=== PATIENT | female | born 1955 | race Caucasian/White ===

== ENCOUNTER 2020-04-15 16:57 | Emergency (ER) | payer BC ==
[~2020-04-15] VITALS: Ht 157.5 cm; Wt 69.4 kg
--- OUTSIDE RECORDS SUMMARY | ~2020-04-15 | XMS | Encounter Summary ---
Demographics + + + | Address | [address] | | | [place] [address] | + + + | Home Phone | | + + + | Preferred Language | Unknown | + + + | Marital Status | Single | + + + | Druze Affiliation | 1077 | + + + | Race | Unknown | + + + | Ethnic Group | Unknown | + + + Author + + + | Author | [facility] | | | and [place] | + + + | Organization | [facility] | | | and [place] | + + + | Address | Unknown | + + + | Phone | Unavailable | + + + Support + + +---------+ + | Name | Relationship | Address | Phone | + + +---------+ + | Shubham Wolfe | ECON | Unknown | | + + +---------+ + | Haven Wolfe | ECON | Unknown | | + + +---------+ + | Lesli Wolfe | ECON | Unknown | | + + +---------+ + Care Team Providers + +------+ + | Care Counting Machine Operator Name | Role | Phone | + +------+ + | Roger Gibbs DO | PCP | | + +------+ + Reason for Referral Diagnostic/Screening (Routine) +--------+--------+ + + + + | Status | Reason | Specialty | Diagnoses / | Referred By | Referred To | | | | | Procedures | Contact | Contact | +--------+--------+ + + + + | Closed | | Radiology | Diagnoses | Josr, | [facility] | | | | | Sciatica of | Kyree | [address] | | | | | right side | [place] | [place], | | | | | associated | [address] | [place] | | | | | with | [place] | [address] | | | | | disorder of | [place], | Phone: | | | | | lumbosacral | [place] [address] | [phone] | | | | | spine Ankle | Phone: | Fax: | | | | | weakness | [phone] | [phone] | | | | | Procedures | Fax: | | | | | | MRI Lumbar | [phone] | | | | | | Spine wo | | | | | | | Contrast | | | +--------+--------+ + + + + Reason for Visit Diagnostic/Screening (Routine) +--------+--------+ + + + + | Status | Reason | Specialty | Diagnoses / | Referred By | Referred To | | | | | Procedures | Contact | Contact | +--------+--------+ + + + + | Closed | | Radiology | Diagnoses | Josr, | [facility] | | | | | Sciatica of | Kyree | [address] | | | | | right side | [place] | [place], | | | | | associated | [address] | [place] | | | | | with | [place] | [address] | | | | | disorder of | [place], | Phone: | | | | | lumbosacral | [place] [address] | [phone] | | | | | spine Ankle | Phone: | Fax: | | | | | weakness | [phone] | [phone] | | | | | Procedures | Fax: | | | | | | MRI Lumbar | [phone] | | | | | | Spine wo | | | | | | | Contrast | | | +--------+--------+ + + + + Encounter Details +--------+ + + + + | Date | Type | Department | Care Team | Description | +--------+ + + + + | [facility]22/ | [facility] Josr Kyree | Sciatica of right | | 2015 | Encounter | [facility] MRI [address] | [address] | side associated with | | | | [place], | [address] [place] | disorder of | | | | [place] [address] | [place] [address] | lumbosacral spine; | | | | [phone] | [phone] | Ankle weakness | | | | | | | +--------+ + + + + Social History + +-------+ +--------+------+ | Tobacco Use | Types | Packs/Day | Years | Date | | | | | Used | | + +-------+ +--------+------+ | Never Smoker | | | | | + +-------+ +--------+------+ + +---+---+---+ | Smokeless Tobacco: | | | | | Never Used | | | | + +---+---+---+ + + +---------+ + | Alcohol Use | Drinks/Week | oz/Week | Comments | + + +---------+ + | Yes | 0 Standard drinks | 0.0 | Rare | | | or equivalent | | | + + +---------+ + + + + | Sex Assigned at | Date Recorded | | | | + + + | Not on file | | + + + + + + + | Job Start Date | Occupation | Industry | + + + + | Not on file | Not on file | Not on file | + + + + + + + + | Travel History | Travel Start | Travel End | + + + + + + | No recent travel history available. | + + documented as of this encounter Medications at Time of Discharge + + + +---------+--------+ + | Medication | Sig | Dispensed | Refills | Start | End Date | | | | | | Date | | + + + +---------+--------+ + | cycloSPORINE | Place 1 drop into | | 0 | | | | (RESTASIS) 0.05% | both eyes 2 times | | | | | | ophthalmic emulsion | daily. | | | | | + + + +---------+--------+ + | montelukast | Take 10 mg by mouth | | 0 | | | | (SINGULAIR) 10 mg | nightly. | | | | | | tablet | | | | | | + + + +---------+--------+ + | pirbuterol (MAXAIR | Inhale 2 puffs into | | 0 | | | | AUTOHALER) 200 | the lungs 4 times | | | | | | mcg/puff inhaler | daily. | | | | | + + + +---------+--------+ + documented as of this encounter Plan of Treatment Not on filedocumented as of this encounter Procedures + +--------+ + + + | Procedure Name | Priori | Date/Time | Associated Diagnosis | Comments | | | ty | | | | + +--------+ + + + | MRI LUMBAR SPINE WO | Routin | 08/22/2015 | Sciatica of right | Results for this | | CONTRAST | e | 12:15 PM | side associated with | procedure are in the | | | | PDT | disorder of | results section. | | | | | lumbosacral spine | | | | | | Ankle weakness | | + +--------+ + + + documented in this encounter Results MRI Lumbar Spine wo Contrast (08/22/2015 12:15 PM PDT) + + | Specimen | + + | | + + + + + | Narrative | Performed At | + + + | MRI LUMBAR SPINE WO CONTRAST. 08/22/2015 11:48 AM HISTORY: | [facility] | | right leg sciatica, right ankle weakness. COMPARISON: Lumbar | [facility] [address] | | spine x-ray 03/10/2015 TECHNIQUE: Axial T1, T2; sagittal T1, T2, | [facility] | | and STIR; coronal T2 MRI images of the lumbar spine were obtained | - IMAGING | | without IV contrast. FINDINGS: There is mild levoconvex curvature | | | of the lumbar spine centered at L2-3. Vertebral body alignment is | | | otherwise maintained. Superior central endplate mild compressive | | | change is seen at the levels of L1 and L2, with Schmorl's node change | | | is seen at the superior endplate of T12 and L3. Discogenic endplate | | | bone marrow signal change is present at the level of L2-3. There is | | | significant loss of disc height. There is mild decreased disc | | | hydration signal at the level of L2-3, greater than at the other | | | levels. The conus medullaris terminates normally at the level of L1. | | | On axial imaging: T11-12: Small posterior disc bulge that | | | extends approximately 3.5 mm into the spinal canal, without | | | significant narrowing of the thecal sac. Mild facet degenerative | | | change with some ligamentum flavum thickening. No neural foraminal | | | narrowing. T12-L1: Small posterior disc bulge that minimally | | | contours the thecal sac. Facet degenerative change with very mild | | | ligamentum flavum thickening. No neural foraminal narrowing. | | | L1-2: Minimal posterior disc bulge. Facet degenerative change, | | | with small bilateral facet joint effusions. No significant | | | narrowing of the thecal sac or neural foramina. L2-3: Small | | | posterior disc bulge that projects approximately 3 mm into the spinal | | | canal, without significant narrowing of the thecal sac. Mild facet | | | degenerative change with small left and trace right facet joint | | | effusion. No neural foraminal narrowing. L3-4: Thecal sac and | | | neural foramina within normal limits. Small bilateral facet joint | | | effusions. L4-5: Thecal sac and neural foramina within normal | | | limits. L5-S1: Thecal sac and neural foramina within normal | | | limits. The visualized intra-abdominal and paraspinal structures | | | are normal. IMPRESSION - Multilevel degenerative disc disease | | | and spondylotic change, localized to the lower thoracic and upper | | | lumbar spine, without significant spinal canal or neural foraminal | | | narrowing. Mild levoconvex curvature of the lumbar spine. | | | Dictated and Signed by: John Luna MD Electronically signed: | | | 08/22/2015 3:11 PM | | + + + + + | Procedure Note | + + | [place], Rad Results In - 08/22/2015 3:14 PM PDT MRI LUMBAR SPINE WO CONTRAST. | | 08/22/2015 11:48 AMHISTORY: right leg sciatica, right ankle weakness.COMPARISON: Lumbar | | spine x-ray 03/10/2015TECHNIQUE: Axial T1, T2; sagittal T1, T2, and STIR; coronal T2 MRI | | images of thelumbar spine were obtained without IV contrast.FINDINGS:There is mild | | levoconvex curvature of the lumbar spine centered at L2-3. Vertebral body alignment is | | otherwise maintained.Superior central endplate mild compressive change is seen at the | | levels of L1and L2, with Schmorl's node change is seen at the superior endplate of T12 | | andL3.Discogenic endplate bone marrow signal change is present at the level of | | L2-3.There is significant loss of disc height. There is mild decreased dischydration | | signal at the level of L2-3, greater than at the other levels.The conus medullaris | | terminates normally at the level of L1.On axial imaging:T11-12: Small posterior disc | | bulge that extends approximately 3.5 mm into thespinal canal, without significant | | narrowing of the thecal sac. Mild facetdegenerative change with some ligamentum flavum | | thickening. No neural foraminalnarrowing.T12-L1: Small posterior disc bulge that | | minimally contours the thecal sac. Facet degenerative change with very mild ligamentum | | flavum thickening. Noneural foraminal narrowing.L1-2: Minimal posterior disc bulge. | | Facet degenerative change, with smallbilateral facet joint effusions. No significant | | narrowing of the thecal sac orneural foramina.L2-3: Small posterior disc bulge that | | projects approximately 3 mm into thespinal canal, without significant narrowing of the | | thecal sac. Mild facetdegenerative change with small left and trace right facet joint | | effusion. Noneural foraminal narrowing.L3-4: Thecal sac and neural foramina within | | normal limits. Small bilateralfacet joint effusions.L4-5: Thecal sac and neural | | foramina within normal limits.L5-S1: Thecal sac and neural foramina within normal | | limits.The visualized intra-abdominal and paraspinal structures are normal.IMPRESSION | | -Multilevel degenerative disc disease and spondylotic change, localized to thelower | | thoracic and upper lumbar spine, without significant spinal canal orneural foraminal | | narrowing.Mild levoconvex curvature of the lumbar spine.Dictated and Signed by: John | | MD Jeremy Electronically signed: 08/22/2015 3:11 PM | |Facet degenerative change with very mild ligamentum flavum thickening. No | |neural foraminal narrowing. | | | |L1-2: Minimal posterior disc bulge. Facet degenerative change, with small | |bilateral facet joint effusions. No significant narrowing of the thecal sac or | |neural foramina. | | | |L2-3: Small posterior disc bulge that projects approximately 3 mm into the | |spinal canal, without significant narrowing of the thecal sac. Mild facet | |degenerative change with small left and trace right facet joint effusion. No | |neural foraminal narrowing. | | | |L3-4: Thecal sac and neural foramina within normal limits. Small bilateral | |facet joint effusions. | | | |L4-5: Thecal sac and neural foramina within normal limits. | | | |L5-S1: Thecal sac and neural foramina within normal limits. | | | |The visualized intra-abdominal and paraspinal structures are normal. | | | | | |IMPRESSION - | |Multilevel degenerative disc disease and spondylotic change, localized to the | |lower thoracic and upper lumbar spine, without significant spinal canal or | |neural foraminal narrowing. | |Mild levoconvex curvature of the lumbar spine. | | | |Dictated and Signed by: John Luna MD | | Electronically signed: 08/22/2015 3:11 PM | + + + + + + + | Performing | Address | City/State[facility] | Phone Number | | Organization | | | | + + + + + | [address] | [address] | [place] | [phone] | | [facility] | | [id number] | | | - IMAGING | | | | + + + + + documented in this encounter Visit Diagnoses + + | Diagnosis | + + | Sciatica of right side associated with disorder of lumbosacral spine | + + | Ankle weakness Other symptoms referable to ankle and foot joint | + + documented in this encounter"
--- OUTSIDE RECORDS SUMMARY | ~2020-04-15 | XMS | Encounter Summary ---
Demographics + + + | Address | [address] | | | [place] [address] | + + + | Home Phone | | + + + | Preferred Language | Unknown | + + + | Marital Status | Single | + + + | Lutheran Affiliation | 1077 | + + + | Race | Unknown | + + + | Ethnic Group | Unknown | + + + Author + + + | Author | [facility] | | | and [place] | + + + | Organization | [facility] | | | and [...] Team Providers + +------+ + | Care Alarm Mechanic Name | Role | Phone | + +------+ + | Roger Gibbs DO | PCP | | + +------+ + Reason for Visit + + + | Reason | Comments | + + + | Follow-up | F/U lumbar | + + + Encounter Details +--------+---------+ + + + | Date | Type | Department | Care Team | Description | +--------+---------+ + + + | 10/18/ | Office | [facility] | Kyree Ovalles | Facet syndrome, | | 2014 | Visit | REHABILITATION | [address] | lumbar (Primary Dx); | | | | MEDICINE [address] | [facility] | Myofascial pain; | | | | [address] [place] | [place] [address] | Unequal leg length | | | | [place] [address] | [phone] | (acquired) | | | | [phone] | | | +--------+---------+ + + + Social History + +-------+ [...] + + documented as of this encounter Last Filed Vital Signs + + + + + | Vital Sign | Reading | Time Taken | Comments | + + + + + | Blood Pressure | 126/80 | 10/18/2015 3:38 PM | | | | | PST | | + + + + + | Pulse | 64 | 10/18/2015 3:38 PM | | | | | PST | | + + + + + | Temperature | - | - | | + + + + + | Respiratory Rate | 16 | 10/18/2015 3:38 PM | | | | | PST | | + + + + + | Oxygen Saturation | - | - | | + + + + + | Inhaled Oxygen | - | - | | | Concentration | | | | + + + + + | Weight | 81.6 kg (180 lb) | 10/18/2015 3:38 PM | | | | | PST | | + + + + + | Height | 157.5 cm (5' 2") | 10/18/2015 3:38 PM | | | | | PST | | + + + + + | Body Mass Index | 32.92 | 10/18/2015 3:38 PM | | | | | PST | | + + + + + documented in this encounter Patient Instructions Patient Instructions Kyree Ovalles MD - 10/18/2015 3:58 PM PST1. Continue the neurontin, but try 2-3 capsules at bedtime on the weekends. 2. Continue PT as you are doing. Make sure and get a good home back exercise program when you are done. 3. Do the back home exercise program at least 3 times a week or your back pain will come b ack. documented in this encounter Progress Notes Kyree Ovalles MD - 10/19/2015 3:22 PM PST15 minutes was spent, [id number], o romulo half in counseling and education regarding the probable cause of her back pain. We also discussed that the Neurontin she was using was definitely helpful especially with o ne tablet the first night, but the second night not as well. I suggested she continue incre asing her dose discussed specifically how to do that without causing morning sedation at wor k She still has problems getting to sleep, once asleep sleeps much better. She also has done several weeks of physical therapy and they're doing core strengthening as I ordered. She reports this definitely has helped and notes that her back had become weak and deconditioned with decreased activity recently and this is helping Low back pain has resolved except for one episode of one day. Still has some left greater than right SI joint discomfort. She notes some left Achilles tendon/ankle pain 15 days ago but resolved after one day . No numbness or tingling, no leg weakness and in fact her back and legs are stronger. Physical exam She is moderately overweight and appears mildly anxious Left shoe has a lift for her acquired leg length discrepancy and we reviewed the MRI that s howed left scoliosis in the lumbar and right in the mid thoracic area where she also has a l ot of pain also. She has some tenderness along the distal Achilles tendon bursa area and around the ankle by report, but okay with palpation and normal range of motion for her. She has limited invers ion and eversion because of fusion She has tenderness in the left SI area today Lower extremity strength 5 over 5 on the right leg but the left inversion and eversion 4 ou t of 5 but very limited in movement because of fusion. Left tibialis anterior and gastroc 4 + over 5 and good sensation in lower extremities Impression Low back pain with out sciatica. 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 I recommend physical therapy with any flareups and we'll send a note to Dr. Sai zaidi this. Continue Neurontin at bedtime I suggest taking a higher dose over the weekend to get better sleep and if there is any sedation transiently it will not affect her job and then cut back during the week Follow-up as needed If symptoms returned consider left L2-3 mL 3 [address] Roger Gibbs documented in this encounter Plan of Treatment Not on filedocumented as of this encounter Visit Diagnoses + + | Diagnosis | + + | Facet syndrome, lumbar - Primary Other symptoms referable to back | + + | Myofascial pain Mylagia and myositis, unspecified | + + | Unequal leg length (acquired) | + + documented in this encounter
--- OUTSIDE RECORDS SUMMARY | ~2020-04-15 | XMS | Encounter Summary ---
Demographics + + + | Address | [address] | | | [place] [address] | + + + | Home Phone | | + + + | Preferred Language | Unknown | + + + | Marital Status | Single | + + + | Buddhism Affiliation | 1077 | + + + | Race | Unknown | + + + | Ethnic Group | Unknown | + + + Author + + + | Author | [facility] | | | and [place] | + + + | Organization | [facility] | | | and [...] Team Providers + +------+ + | Care Chocolate Molder Name | Role | Phone | + +------+ + | Roger Gibbs DO | PCP | | + +------+ + Reason for Visit +--------+ + | Reason | Comments | +--------+ + | Other | Imaging results | +--------+ + Encounter Details +--------+ + + + + | Date | Type | Department | Care Team | Description | +--------+ + + + + | 09/07/ | Telephone | [facility] | Kyree Ovalles | Other (Imaging | | 2014 | | REHABILITATION | [address] | results) | | | | MEDICINE [address] | [place] | | | | | [address] [place] | [place] [address] | | | | | [place] [address] | [phone] | | | | | [phone] | | | +--------+ + + + [...] + + documented as of this encounter Plan of Treatment Not on filedocumented as of this encounter Visit Diagnoses Not on filedocumented in this encounter"
--- OUTSIDE RECORDS SUMMARY | ~2020-04-15 | XMS | Encounter Summary ---
Demographics + + + | Address | [address] | | | [place] [address] | + + + | Home Phone | | + + + | Preferred Language | Unknown | + + + | Marital Status | Single | + + + | Voodoo Affiliation | 1077 | + + + | Race | Unknown | + + + | Ethnic Group | Unknown | + + + Author + + + | Author | [facility] | | | and [place] | + + + | Organization | [facility] | | | and [...] Team Providers + +------+ + | Care Sister Superior Name | Role | Phone | + +------+ + PCP | Unavailable | + +------+ + Encounter Details +--------+ + + + + | Date | Type | Department | Care Team | Description | +--------+ + + + + | 03/19/ | Hospital | [facility] | | | | 2006 - | Encounter | [address] | | | [address] | | | | 03/31/ | | [place], [place] | | | | 2006 | | [address] | | | | | | [phone] | | | +--------+ + + + + Social History + +-------+ +--------+------+ | Tobacco Use | Types | Packs/Day | Years | Date | | | | | Used | | + +-------+ +--------+------+ | Never Assessed | | | | | + +-------+ +--------+------+ + + + | Sex Assigned at [...]
--- OUTSIDE RECORDS SUMMARY | ~2020-04-15 | XMS | Encounter Summary ---
Demographics + + + | Address | [address] | | | [place] [address] | + + + | Home Phone | | + + + | Preferred Language | Unknown | + + + | Marital Status | Single | + + + | Baptist Affiliation | 1077 | + + + | Race | Unknown | + + + | Ethnic Group | Unknown | + + + Author + + + | Author | [facility] | | | and [place] | + + + | Organization | [facility] | | [...] Team Providers + +------+ + | Care Product Support Engineer Name | Role | Phone | + +------+ + PCP | Unavailable | + +------+ + Encounter Details +--------+ + + + + | Date | Type | Department | Care Team | Description | +--------+ + + + + | 05/31/ | Hospital | [facility] | | BENIGN NEOPLASM SKIN | | 2004 - | Encounter | [address] | | [address] | [address] | [address] | | | | 06/06/ | | [place] | | | | 2004 | | [address] | | | | | | [phone] | | | +--------+ + + + [...] + | Diagnosis | + + | Benign neoplasm of skin, site unspecified | + + documented in this encounter"
--- OUTSIDE RECORDS SUMMARY | ~2020-04-15 | XMS | Encounter Summary ---
Demographics + + + | Address | [address] | | | [place] [address] | + + + | Home Phone | | + + + | Preferred Language | Unknown | + + + | Marital Status | Single | + + + | Methodist Affiliation | 1077 | + + + | Race | Unknown | + + + | Ethnic Group | Unknown | + + + Author + + + | Author | [facility] | | | and [place] | + + + | Organization | [facility] | | | [...] Team Providers + +------+ + | Care Battery Container Finishing Hand Name | Role | Phone | + +------+ + PCP | Unavailable | + +------+ + Encounter Details +--------+ + + + + | Date | Type | Department | Care Team | Description | +--------+ + + + + | 04/10/ | Hospital | [facility] | | BENIGN NEOPLASM SKIN | | 2004 - | Encounter | [address] | | [address] | [address] | [address] | | | | 04/18/ | | [place] | | | | 2004 | | [address] | | | | | | [phone] | | | +--------+ + + + [...]
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
--- OUTSIDE RECORDS SUMMARY | ~2020-04-15 | XMS | Encounter Summary ---
Demographics + + + | Address | [address] | | | [place] [address] | + + + | Home Phone | | + + + | Preferred Language | Unknown | + + + | Marital Status | Single | + + + | Yarsani Affiliation | 1077 | + + + | Race | Unknown | + + + | Ethnic Group | Unknown | + + + Author + + + | Author | [facility] | | | and [place] | + + + | Organization | [facility] | | [...] Team Providers + +------+ + | Care Sweater Operator Name | Role | Phone | + +------+ + PCP | Unavailable | + +------+ + Encounter Details +--------+ + + + + | Date | Type | Department | Care Team | Description | +--------+ + + + + | 04/10/ | Hospital | [facility] | | BENIGN NEOPLASM SKIN | | 2004 - | Encounter | [address] | | [address] | | | | [address] | | | | 04/18/ | | [place] | | | | 2004 | | [address] | | | | | | [phone] | | | +--------+ + + + [...]
--- OUTSIDE RECORDS SUMMARY | ~2020-04-15 | XMS | Clinical Summary ---
Demographics + + + | Address | [address] | | | [place] [address] | + + + | Home Phone | | + + + | Preferred Language | Unknown | + + + | Marital Status | Single | + + + | Presybeterian Affiliation | 1077 | + + + | Race | Unknown | + + + | Ethnic Group | Unknown | + + + Author + + + | Author | [facility] | | | and [place] | + + + | Organization | [facility] | [...] Team Providers + +------+ + | Care Customer Support Manager Name | Role | Phone | + +------+ + | Roger Gibbs DO | PCP | | + +------+ + Allergies + + + + + + | Active Allergy | Reactions | Severity | Noted | Comments | | | | | Date | | + + + + + + | Latex | Itching | | 02/01/20 | Blisters | | | | | 10 | | + + + + + + Medications + + + +---------+------+------+-------+ | Medication | Sig | Dispensed | Refills | Star | End | Statu | | | | | | t | Date | s | | | | | | Date | | | + + + +---------+------+------+-------+ | cycloSPORINE | Place 1 drop into | | 0 | | | Activ | | (RESTASIS) 0.05% | both eyes 2 times | | | | | e | | ophthalmic emulsion | daily. | | | | | | + + + +---------+------+------+-------+ | montelukast | Take 10 mg by mouth | | 0 | | | Activ | | (SINGULAIR) 10 mg | nightly. | | | | | e | | tablet | | | | | | | + + + +---------+------+------+-------+ | pirbuterol (MAXAIR | Inhale 2 puffs into | | 0 | | | Activ | | AUTOHALER) 200 | the lungs 4 times | | | | | e | | mcg/puff inhaler | daily. | | | | | | + + + +---------+------+------+-------+ Active Problems No known active problems Family History + + +------+ + | Medical History | Relation | Name | Comments | + + +------+ + | Alcohol abuse | Brother | | | + + +------+ + | Alcohol abuse | Father | | | + + +------+ + | Asthma | Father | | | + + +------+ + | Cancer | Father | | skin | + + +------+ + | Other (see comment) | Father | | Stomach Problems | + + +------+ + | Other (see comment) | Maternal | | Spinal Stenosis | | | Aunt | | | + + +------+ + | Lung cancer | Maternal | | | | | Grandfath | | | | | er | | | + + +------+ + | Other (see comment) | Maternal | | Malignant neoplastic disease | | | Grandfath | | | | | er | | | + + +------+ + | Diabetes | Maternal | | | | | Grandmoth | | | | | er | | | + + +------+ + | Other (see comment) | Maternal | | Malignant neoplastic disease | | | Grandmoth | | | | | er | | | + + +------+ + | Asthma | Mother | | | + + +------+ + | Diabetes | Mother | | | + + +------+ + | Headache | Mother | | | + + +------+ + | Hypertension | Mother | | | + + +------+ + | Other (see comment) | Mother | | Rheumatic Fever | + + +------+ + | Rheum arthritis | Mother | | | + + +------+ + | Osteoporosis | Other | | Relation Unknown | + + +------+ + | Obesity | Paternal | | | | | Grandmoth | | | | | er | | | + + +------+ + | Other (see comment) | Paternal | | Bowel Problem | | | Grandmoth | | | | | er | | | + + +------+ + | Diabetes | Paternal | | | | | Uncle | | | + + +------+ + | Retinal detachment | Paternal | | | | | Uncle | | | + + +------+ + | Heart failure | Sister | | | + + +------+ + | Rheum arthritis | Sister | | | + + +------+ + | Scoliosis | Sister | | | + + +------+ + + +------+ + + | Relation | Name | Status | Comments | + +------+ + + | Brother | | | | + +------+ + + | Father | | Alive | | + +------+ + + | Maternal Aunt | | Alive | | + +------+ + + | Maternal Aunt | | | | + +------+ + + | Maternal Grandfather | | | Cancer | | | | (Age | | | | | 66) | | + +------+ + + | Maternal Grandmother | | | | | | | (Age | | | | | 105) | | + +------+ + + | Mother | | Alive | | + +------+ + + | Other | | | | + +------+ + + | Paternal Grandmother | | | | + +------+ + + | Paternal Uncle | | Alive | | + +------+ + + | Paternal Uncle | | | | + +------+ + + | Sister | | Alive | | + +------+ + + | Sister | | | | + +------+ + + Social History + +-------+ +--------+------+ [...] recent travel history available. | + + Last Filed Vital Signs + + + [...] | | + + + + + Plan of Treatment + + + + + | Health Maintenance | Due Date | Last Done | Comments | + + + + + | Vaccine: | | | | | Dtap/Tdap/Td (1 - | 8 | | | | Tdap) | | | | + + + + + | Cervical Cancer | | | | | Screening (Pap) | 7 | | | + + + + + | Vaccine: Zoster (1 | | | | | of 2) | 7 | | | + + + + + | Breast Cancer | | | | | Screening | 2 | | | + + + + + | Vaccine: Influenza | | | | | (Season Ended) | 0 | | | + + + + + Results Not on filefrom Last 3 Months Insurance +-------+--------+ +--------+-------+---------+------+ | Payer | Benefi | Subscriber | Effect | Phone | Address | Type | | | t Plan | ID | bharat | | | | | | / | | Dates | | | | | | Group | | | | | | +-------+--------+ +--------+-------+---------+------+ | BCBS | BCBS | [id number] | | | | PPO | | | [place] | | [id number] | | | | | | L FEP | | esent | | | | +-------+--------+ +--------+-------+---------+------+ + +--------+ +--------+ + + | Guarantor Name | Accoun | Relation to | Date | Phone | Billing Address | | | t Type | Patient | of | | | | | | | | | | + +--------+ +--------+ + + | Chary Wolfe | Person | Self [birth year] | [address] | | | al/Fam | | 7 | [phone] | [place] | | | den[place] | | | 8 (Home) | [address] | | | | | | [phone] | | | | | | | 3 (Work) | | + +--------+ +--------+ + + Advance Directives + + + + + | Type | Date Recorded | Patient | Explanation | | | | Principal Technical Writer | | + + + + + | Power of | | | | | Charge Manager | | | | + + + + + | Advance | | | | | Directive | | | | + + + + +
--- OUTSIDE RECORDS SUMMARY | ~2020-04-15 | XMS | Encounter Summary ---
Demographics + + + | Address | [address] | | | [place] [address] | + + + | Home Phone | | + + + | Preferred Language | Unknown | + + + | Marital Status | Single | + + + | Baptist Affiliation | 1077 | + + + | Race | Unknown | + + + | Ethnic Group | Unknown | + + + Author + + + | Author | [facility] | | | and [place] | + + + | Organization | [facility] | | | [...] Team Providers + +------+ + | Care Field Support Engineer Name | Role | Phone [...] + + | 09/07/ | Telephone | [facility] | Kyree Ovalles | Other (Imaging | | 2014 | | REHABILITATION | [address] | results) | | | | MEDICINE [address] | [place] | | | | | [address] [place] | [place] [address] | | | | | [place] [address] | [phone] | | | | | [phone] | | | +--------+ + + + [...]
--- OUTSIDE RECORDS SUMMARY | ~2020-04-15 | XMS | Encounter Summary ---
Demographics + + + | Address | [address] | | | [place] [address] | + + + | Home Phone | | + + + | Preferred Language | Unknown | + + + | Marital Status | Single | + + + | Scientologist Affiliation | 1077 | + + + | Race | Unknown | + + + | Ethnic Group | Unknown | + + + Author + + + | Author | [facility] | | | and [place] | + + + | Organization | [facility] | | | and [...] Team Providers + +------+ + | Care Piano Bench Assembler Name | Role | Phone | + +------+ + | Roger Gibbs DO | PCP | | + +------+ + Reason for Referral Evaluate & Treat (Routine) +--------+ + + + + + | Status | Reason | Specialty | Diagnoses / | Referred By | Referred To | | | | | Procedures | Contact | Contact | +--------+ + + + + + | Closed | Specialty | Physical | Diagnoses | Josr, | | | | Services | Therapy | Janina | Kyree | | | | Required | | syndrome, | [place] | | | | | | lumbar | [address] | | | | | | Lumbar back | [place] | | | | | | sprain, | [place], | | | | | | subsequent | [place] [address] | | | | | | encounter | Phone: | | | | | | | [phone] | | | | | | | Fax: | | | | | | | [phone] | | +--------+ + + + + + Reason for Visit + + + | Reason | Comments | + + + | Follow-up | Back pain | + + + Encounter Details +--------+---------+ + + + | Date | Type | Department | Care Team | Description | +--------+---------+ + + + | 09/05/ | Office | [facility] | Kyree Ovalles | Facet syndrome, | | 2015 | Visit | REHABILITATION | [address] | lumbar (Primary Dx); | | | | MEDICINE [address] | [place] | Lumbar back sprain, | | | | [address] [place] | [place] [address] | subsequent | | | | [place] [address] | [phone] | encounter | | | | [phone] | | | +--------+---------+ + + + [...] + + + | Blood Pressure | 112/73 | 09/05/2015 2:57 PM | | | | | PDT | | + + + + + | Pulse | 78 | 09/05/2015 2:57 PM | | | | | PDT | | + + + + + | Temperature | - | - | | + + + + + | Respiratory Rate | 18 | 09/05/2015 2:57 PM | | | | | PDT | | + + + + + | Oxygen Saturation | - | - | | + + + + + | Inhaled Oxygen | - | - | | | Concentration | | | | + + + + + | Weight | 81.6 kg (180 lb) | 09/05/2015 2:57 PM | | | | | PDT | | + + + + + | Height | 157.5 cm (5' 2") | 09/05/2015 2:57 PM | | | | | PDT | | + + + + + | Body Mass Index | 32.92 | 09/05/2015 2:57 PM | | | | | PDT | | + + + + + documented in this encounter Patient Instructions Patient Instructions Kyree Ovalles MD - 09/05/2015 3:53 PM PDT1. PT in [facility] with [facility] for core strengthening 2. Trial of the neurontin (gabapentin) 3. I'll see you in 6 weeks. 4. If you are not better from PT, we will talk about injections at the left L2-3 and left L3-4. documented in this encounter Progress Notes Kyree Ovalles MD - 09/09/2015 4:52 PM PDTI spent over 25 minutes, face to face with the patient, much more than half in counseling, education, and setting up plan of care as well as trying to sort out the specific etiology of her back pain. The flexion and extension x-ray was okay and this was reviewed with the patient including t he films. She reports back pain that is severe at times but especially points to the left SI area and into the tailbone. She has had no pain into the lower extremities since he last visit. We also spent considerable time reviewing the MRI from August 22, 2015. This showed disco genic end plate marrow changes at L2-3. There were several disc bulges, but no significant nerve root impingement. There didn't appear to be some facet degenerative changes more on t he left consistent with her report. However the worst were at L1-2, but some at L2-3 and L3 -4. Thus I explained we are probably looking at a mechanical back facet pain problem especially given she has not have the right leg pain repeat. However she is very concerned regarding that when she fell she hit in the mid lumbar area a nd felt a distraction at that level. I explained that she could have damaged her facet join ts during that fall and there is some correlation with the MRI and thus discussed facet inje ctions. I also asked the neurosurgeon's to review this MRI and they did and they indicated this was not a surgical problem. Sleep: She is only sleeping 5 6 hours per night and waking up from back pain. Thus we di scussed adding Neurontin that I suspect will help with sleep. Physical exam She is somewhat anxious about her problem. She is somewhat overweight. On palpation she has back pain from L3 through the left SI joint Lower extremity strength 5 over 5 except right eversion still 4 out of 5 and normal sensati on in the lower extremities. The patient explains the right ankle is probably weaker since she uses it more, given her left ankle surgery. However in this case, I would expect it to be stronger and this was reviewed with the patient. Impression Low back pain with no recent sciatica and lumbar MRI more indicative of a facet problem. S he has not yet had physical therapy so we'll start that Bilateral SI pain, left greater than right: Physical therapy to address that also Left leg short, but has a lift: However she does have scoliosis related to that, which coul d worsen a facet problem. Previous history of multiple trauma discussed previously Plan Physical therapy to do core strengthening and home exercise program Neurontin at bedtime to help sleep Follow-up in 6 weeks so she can have a good session of physical therapy If she fails physical therapy will look into a left L2-3, L3-4 facet injectionElectronicall y signed by Kyree Ovalles MD at 09/09/2015 5:05 PM PDTdocumented in this encount er Plan of Treatment + + +--------+ + + | Name | Type | Priori | Associated Diagnoses | Order Schedule | | | | ty | | | + + +--------+ + + | Ambulatory referral | Outpatient | Routin | Facet syndrome, | Ordered: 09/05/2015 | | to Physical Therapy | Referral | e | lumbar Lumbar back | | | | | | sprain, subsequent | | | | | | encounter | | + + +--------+ + + documented as of this encounter Visit Diagnoses + + | Diagnosis | + + | Facet syndrome, lumbar - Primary Other symptoms referable to back | + + | Lumbar back sprain, subsequent encounter | + + documented in this encounter
--- OUTSIDE RECORDS SUMMARY | ~2020-04-15 | XMS | Encounter Summary ---
Demographics + + + | Address | [address] | | | [place] [address] | + + + | Home Phone | | + + + | Preferred Language | Unknown | + + + | Marital Status | Single | + + + | Yarsanism Affiliation | 1077 | + + + | Race | Unknown | + + + | Ethnic Group | Unknown | + + + Author + + + | Author | [facility] | | | and [place] | + + + | Organization | [facility] | | | and [...] Team Providers + +------+ + | Care Patient Relations Coordinator Name | Role | Phone | + +------+ + PCP | Unavailable | + +------+ + Encounter Details +--------+ + + + + | Date | Type | Department | Care Team | Description | +--------+ + + + + | 10/18/ | Hospital | [facility] GENER[facility] OP | | BENIGN NEOPLASM SKIN | | 2004 - | Encounter | [address] | | [address] | | | | [address] | | | | 10/29/ | | [place] | | | | 2005 | | [address] | | | | | | [phone] | | | +--------+ + + + [...]
--- OUTSIDE RECORDS SUMMARY | ~2020-04-15 | XMS | Encounter Summary ---
Demographics + + + | Address | [address] | | | [place] [address] | + + + | Home Phone | | + + + | Preferred Language | Unknown | + + + | Marital Status | Single | + + + | Mandaeism Affiliation | 1077 | + + + | Race | Unknown | + + + | Ethnic Group | Unknown | + + + Author + + + | Author | [facility] | | | and [place] | + + + | Organization | [facility] | | | [...] Team Providers + +------+ + | Care Silk Snapper Name | Role | Phone | + [...] Sciatica of | Kyree | [address] | | | | | right side | [place] | [place], | | | | | associated | [address] | [place] | | | | | with | [place] | [address] | | | | | disorder of | [place], | Phone: | | | | | lumbosacral | [place] [address] | [phone] | | | | | spine Ankle | Phone: | Fax: | | | | | weakness | [phone] | [phone] | | | | | Procedures | Fax: | | | | | | MRI Lumbar | [phone] | | | | | | Spine [...] | | | | Rehabilitatio | | [address] | [place] | | | | n | radiculopath | [address] | [address] | | | | | y | [address] | [place] | | | | | Procedures | [address] | [place] | | | | | OR OFFICE | [place], [place] | [address] Phone: | | | | | CONSULTATION | [address] | [phone] | | | | | NEW/ESTAB | Phone: | Fax: | | | | | PATIENT 60 | [phone] | [phone] | | | | | MIN | | | +--------+--------+ + + + + Encounter Details +--------+---------+ + + + | Date | Type | Department | Care Team | Description | +--------+---------+ + + + | 07/21/ | Office | [facility] | Kyree Ovalles | Sciatica of right | | 2015 | Visit | REHABILITATION | [address] | side associated with | | | | MEDICINE [address] | [place] | disorder of | | | | [address] [place] | [place] [address] | lumbosacral spine | | | | [place] [address] | [phone] | (Primary Dx); | | | | [phone] | | Acquired leg length | | [...] review the mri. 3. Look into a [employer] online. documented in this encounter Progress Notes [...] microfracture noted by her ort jadynt in [place]. She also had the left forearm fracture [...] sciatica, right ankle weakness. COMPARISON: Lumbar | [facility] | | spine x-ray 03/10/2015 TECHNIQUE: Axial T1, T2; sagittal T1, T2, | [facility] | | and STIR; coronal T2 [...] [address] | [place], [place] | [phone] | | [facility] | | [address] | | | - IMAGING | | [...]
--- OUTSIDE RECORDS SUMMARY | ~2020-04-15 | XMS | Encounter Summary ---
Demographics + + + | Address | [address] | | | [place] [address] | + + + | Home Phone | | + + + | Preferred Language | Unknown | + + + | Marital Status | Single | + + + | Buddhism Affiliation | 1077 | + + + | Race | Unknown | + + + | Ethnic Group | Unknown | + + + Author + + + | Author | [facility] | | | and [place] | + + + | Organization | [facility] | | | [...] Team Providers + +------+ + | Care Slot Floorman Name | Role | Phone | + +------+ + PCP | Unavailable | + +------+ + Encounter Details +--------+ + + + + | Date | Type | Department | Care Team | Description | +--------+ + + + + | 10/18/ | Hospital | [facility] GENERIC OP | | BENIGN NEOPLASM SKIN | | 2004 - | Encounter | [address] | | [address] | | | | [address] | | | | 10/29/ | | [place] | | | | 2005 | | [address] | | | | | | [phone] | | | +--------+ + + + [...]
--- OUTSIDE RECORDS SUMMARY | ~2020-04-15 | XMS | Encounter Summary ---
Demographics + + + | Address | [address] | | | [place] [address] | + + + | Home Phone | | + + + | Preferred Language | Unknown | + + + | Marital Status | Single | + + + | Shinto Affiliation | 1077 | + + + | Race | Unknown | + + + | Ethnic Group | Unknown | + + + Author + + + | Author | [facility] | | | and [place] | + + + | Organization | [facility] | | [...] Team Providers + +------+ + | Care Drop Hammer Mechanic Name | Role | Phone | [...] Sciatica of | Kyree | [address] | | | | | right side | [place] | [place], | | | | | associated | [address] | [place] | | | | | with | [place] | [address] | | | | | disorder of | [place], | Phone: | | | | | lumbosacral | [place] [address] | [phone] | | | | | spine Ankle | Phone: | Fax: | | | | | weakness | [phone] | [phone] | | | | | Procedures | Fax: | | | | | | MRI Lumbar | [phone] | | | | | | Spine [...] Sciatica of | Kyree | [address] | | | | | right side | [place] | [place], | | | | | associated | [address] | [place] | | | | | with | [place] | [address] | | | | | disorder of | [place], | Phone: | | | | | lumbosacral | [place] [address] | [phone] | | | | | spine Ankle | Phone: | Fax: | | | | | weakness | [phone] | [phone] | | | | | Procedures | Fax: | | | | | | MRI Lumbar | [phone] | | | | | | Spine wo | | | | | | | Contrast | | | +--------+--------+ + + + + Encounter Details +--------+ + + + + | Date | Type | Department | Care Team | Description | +--------+ + + + + | [facility]22/ | [facility] | Josr Kyree | Sciatica of right | | 2015 | Encounter | MED CTR MRI [address] | [address] | side associated with | | | | [place], | [place] | disorder of | | | | [place] [address] | [place] [address] | lumbosacral spine; | | | | [phone] | [phone] | Ankle weakness | | | | [...] + + | Performing | Address | City/State[facility] | Phone Number | | Organization | | | | + + + + + | [address] | [address] | [place] | [phone] | | [facility] | | [address] | | | - IMAGING | | [...]
--- OUTSIDE RECORDS SUMMARY | ~2020-04-15 | XMS | Encounter Summary ---
Demographics + + + | Address | [address] | | | [place] [address] | + + + | Home Phone | | + + + | Preferred Language | Unknown | + + + | Marital Status | Single | + + + | Orthodox Affiliation | 1077 | + + + | Race | Unknown | + + + | Ethnic Group | Unknown | + + + Author + + + | Author | [facility] | | | and [place] | + + + | Organization | [facility] | | | [...] Team Providers + +------+ + | Care Intake Clerk Name | Role | Phone | + [...] | | | | 03/31/ | | [place], [place] | | | | 2006 | | [address] | | | | | | [phone] | | | +--------+ + + + [...]
--- OUTSIDE RECORDS SUMMARY | ~2020-04-15 | XMS | Encounter Summary ---
Demographics + + + | Address | [address] | | | [place] [address] | + + + | Home Phone | | + + + | Preferred Language | Unknown | + + + | Marital Status | Single | + + + | Jew Affiliation | 1077 | + + + | Race | Unknown | + + + | Ethnic Group | Unknown | + + + Author + + + | Author | [facility] | | | and [place] | + + + | Organization | [facility] | | | [...] Team Providers + +------+ + | Care Surfacing Technician Name | Role | Phone | + +------+ + PCP | Unavailable | + +------+ + Encounter Details +--------+ + + + + | Date | Type | Department | Care Team | Description | +--------+ + + + + | 05/31/ | Hospital | [facility] GENER[facility] | | BENIGN NEOPLASM SKIN | | 2004 - | Encounter | [address] | | [address]OS | | | | [address] | | | | 06/06/ | | [place] | | | | 2004 | | [address] | | | | | | [phone] | | | +--------+ + + + [...]
--- OUTSIDE RECORDS SUMMARY | ~2020-04-15 | XMS | Encounter Summary ---
Demographics + + + | Address | [address] | | | [place] [address] | + + + | Home Phone | | + + + | Preferred Language | Unknown | + + + | Marital Status | Single | + + + | Pentecostal Affiliation | 1077 | + + + | Race | Unknown | + + + | Ethnic Group | Unknown | + + + Author + + + | Author | [facility] | | | and [place] | + + + | Organization | [facility] | | | [...] Providers + +------+ + | Care Patient Service Rep Name | Role | Phone | + +------+ + | Roger Gibbs DO | PCP | | + +------+ + Encounter Details +--------+ + + + + | Date | Type | Department | Care Team | Description | +--------+ + + + + | 07/20/ | Abstract | [facility] | Kyree Ovalles | | | 2014 | | REHABILITATION | [address] | | | | | MEDICINE [address] | [place] | | | | | [address] [place] | [place] [address] | | | | | [place] [address] | [phone] | | | | | [phone] | | | +--------+ + + + [...]
--- OUTSIDE RECORDS SUMMARY | ~2020-04-15 | XMS | Encounter Summary ---
Demographics + + + | Address | [address] | | | [place] [address] | + + + | Home Phone | | + + + | Preferred Language | Unknown | + + + | Marital Status | Single | + + + | Jainism Affiliation | 1077 | + + + | Race | Unknown | + + + | Ethnic Group | Unknown | + + + Author + + + | Author | [facility] | | | and [place] | + + + | Organization | [facility] | | [...] Team Providers + +------+ + | Care Sheet Pile Hammer Operator Name | Role | Phone | + +------+ + PCP | Unavailable | + +------+ + Encounter Details +--------+ + + + + | Date | Type | Department | Care Team | Description | +--------+ + + + + | 05/03/ | Hospital | [facility] | | BENIGN NEOPLASM SKIN | | 2004 - | Encounter | [address] | | [address] | | | | [address] | | | | 05/13/ | | [place] | | | | 2004 | | [address] | | | | | | [phone] | | | +--------+ + + + [...]
--- OUTSIDE RECORDS SUMMARY | ~2020-04-15 | XMS | Encounter Summary ---
Demographics + + + | Address | [address] | | | [place] [address] | + + + | Home Phone | | + + + | Preferred Language | Unknown | + + + | Marital Status | Single | + + + | Caodaism Affiliation | 1077 | + + + [...] Team Providers + +------+ + | Care Superintendent Cemetery Name | Role | Phone | + +------+ + PCP | Unavailable | + +------+ + Encounter Details +--------+ + + + + | Date | Type | Department | Care Team | Description | +--------+ + + + + | 10/03/ | Hospital | [facility] | | ACTINIC KERATOSIS | | 2004 - | Encounter | [address] | | | | | | [address] | | | | 10/12/ | | [place], [place] | | | | 2004 | | [address] | | | | | | [phone] | | | +--------+ + + + [...] + | Diagnosis | + + | Actinic keratosis | + + documented in this encounter"
--- OUTSIDE RECORDS SUMMARY | ~2020-04-15 | XMS | Encounter Summary ---
Demographics + + + | Address | [address] | | | [place] [address] | + + + | Home Phone | | + + + | Preferred Language | Unknown | + + + | Marital Status | Single | + + + | Episcopal Affiliation | 1077 | + + + | Race | Unknown | + + + | Ethnic Group | Unknown | + + + Author + + + | Author | [facility] | | | and [place] | + + + | Organization | [facility] | | | and [...] Team Providers + +------+ + | Care Rigging Loft Repairer Name | Role | Phone | + +------+ + PCP | Unavailable | + +------+ + Encounter Details +--------+ + + + + | Date | Type | Department | Care Team | Description | +--------+ + + + + | 10/03/ | Hospital | [facility] | | ACTINIC KERATOSIS | | 2004 - | Encounter | [address] | | | | | | [address] | | | | 10/12/ | | [place], [place] | | | | 2004 | | [address] | | | | | | [phone] | | | +--------+ + + + [...]
--- OUTSIDE RECORDS SUMMARY | ~2020-04-15 | XMS | Encounter Summary ---
Demographics + + + | Address | [address] | | | [place] [address] | + + + | Home Phone | | + + + | Preferred Language | Unknown | + + + | Marital Status | Single | + + + | Adventism Affiliation | 1077 | + + + [...] Team Providers + +------+ + | Care Low Vision Therapist Name | Role | Phone | + [...] | | | MEDICINE [address] | [place] | | | | | [address] [place] | [place] [address] | | | | | [place] [address] | [phone] | | | | | [phone] | | | +--------+ + + + [...]
--- OUTSIDE RECORDS SUMMARY | ~2020-04-15 | XMS | Encounter Summary ---
Demographics + + + | Address | [address] | | | [place] [address] | + + + | Home Phone | | + + + | Preferred Language | Unknown | + + + | Marital Status | Single | + + + | Judaism Affiliation | 1077 | + + + | Race | Unknown | + + + | Ethnic Group | Unknown | + + + Author + + + | Author | [facility] | | | and [place] | + + + | Organization | [facility] | | | [...] Team Providers + +------+ + | Care Proposal Coordinator Name | Role | Phone | [...] | | | Services | Therapy | Jainna | Kyree | | | | Required | | syndrome, | [place] | | | | | | lumbar | [address] | | | | | | Lumbar back | [place] | | | | | | sprain, | [place], | | | | | | subsequent | [place] [address] | | | | | | encounter | Phone: | | | | | | | [phone] | | | | | | | Fax: | | | | | | | [phone] | | +--------+ + + + + + Reason for Visit + + + | Reason | Comments | + + + | Follow-up | Back pain | + + + Encounter Details +--------+---------+ + + + | Date | Type | Department | Care Team | Description | +--------+---------+ + + + | 09/05/ | Office | [facility] | Kyree Ovalles | Facet syndrome, | | 2015 | Visit | REHABILITATION | [address] | lumbar (Primary Dx); | | | | MEDICINE [address] | [place] | Lumbar back sprain, | | | | [address] [place] | [place] [address] | subsequent | | | | [place] [address] | [phone] | encounter | | | | [phone] | | | +--------+---------+ + + + [...] - 09/05/2015 3:53 PM PDT1. PT in [facility] with [facility] for core strengthening 2. Trial of [...]
--- OUTSIDE RECORDS SUMMARY | ~2020-04-15 | XMS | Encounter Summary ---
Demographics + + + | Address | [address] | | | [place] [address] | + + + | Home Phone | | + + + | Preferred Language | Unknown | + + + | Marital Status | Single | + + + | Christianity Affiliation | 1077 | + + + | Race | Unknown | + + + | Ethnic Group | Unknown | + + + Author + + + | Author | [facility] | | | and [place] | + + + | Organization | [facility] | | [...] Team Providers + +------+ + | Care Strainer Tender Name | Role | Phone | + +------+ + PCP | Unavailable | + +------+ + Encounter Details +--------+ + + + + | Date | Type | Department | Care Team | Description | +--------+ + + + + | 10/12/ | Hospital | [facility] | | BENIGN NEOPLASM SKIN | | 2004 - | Encounter | [address] | | [address] | | | | [address] | | | | 10/21/ | | [place] | | | | 2005 | | [address] | | | | | | [phone] | | | +--------+ + + + [...]
--- OUTSIDE RECORDS SUMMARY | ~2020-04-15 | XMS | Encounter Summary ---
Demographics + + + | Address | [address] | | | [place] [address] | + + + | Home Phone [...] + + + | Author | [facility] | | | and [place] | + + + | Organization | [facility] | | | [...] Team Providers + +------+ + | Care Call Person Name | Role | Phone | + +------+ + PCP | Unavailable | + +------+ + Encounter Details +--------+ + + + + | Date | Type | Department | Care Team | Description | +--------+ + + + + | 10/12/ | Hospital | [facility] | | BENIGN NEOPLASM SKIN | | 2004 - | Encounter | [address] | | [address] | | | | [address] | | | | 10/21/ | | [place] | | | | 2005 | | [address] | | | | | | [phone] | | | +--------+ + + + [...]
--- OUTSIDE RECORDS SUMMARY | ~2020-04-15 | XMS | Encounter Summary ---
Demographics + + + | Address | [address] | | | [place] [address] | + + + | Home Phone | | + + + | Preferred Language | Unknown | + + + | Marital Status | Single | + + + | Shinto Affiliation | 1077 | + + + | Race | Unknown | + + + | Ethnic Group | Unknown | + + + Author + + + | Author | [facility] | | | and [place] | + + + | Organization | [facility] | | | [...] Team Providers + +------+ + | Care Bath Steward Name | Role | Phone | + +------+ + PCP | Unavailable | + +------+ + Encounter Details +--------+ + + + + | Date | Type | Department | Care Team | Description | +--------+ + + + + | 05/03/ | Hospital | [facility] | | BENIGN NEOPLASM SKIN | | 2004 - | Encounter | [address] | | [address] | | | | [address] | | | | 05/13/ | | [place] | | | | 2004 | | [id number] | | | | | | [phone] | | | +--------+ + + + [...]
--- OUTSIDE RECORDS SUMMARY | ~2020-04-15 | XMS | Clinical Summary ---
Demographics + + + | Address | [address] | | | [place] [address] | + + + | Home Phone | | + + + | Preferred Language | Unknown | + + + | Marital Status | Single | + + + | Mosque Affiliation | 1077 | + + + | Race | Unknown | + + + | Ethnic Group | Unknown | + + + Author + + + | Author | [facility] | | | and [place] | + + + | Organization | [facility] | | | and [...] Providers + +------+ + | Care Field Services Analyst Name | Role | Phone | + [...] +-------+--------+ +--------+-------+---------+------+ | [employer] | BCBS | [id number] | | | | PPO | | [...] | | al/Fam | | 7 | [phone] | [place] | | | den[place] | | | 8 (Home) | [id number] | | | | | | [phone] | | | | | | | 3 (Work) | | + +--------+ +--------+ + + Advance Directives + + + + + | Type | Date Recorded | Patient | Explanation | | | | Conservation Agent | | + + + + + | Power of | | | | | Plate Grinder | | | | + + + + + | Advance | | | | | Directive | | | | + + + + +
--- OUTSIDE RECORDS SUMMARY | ~2020-04-15 | XMS | Encounter Summary ---
Demographics + + + | Address | [address] | | | [place] [address] | + + + | Home Phone | | + + + | Preferred Language | Unknown | + + + | Marital Status | Single | + + + | Scientology Affiliation | 1077 | + + + | Race | Unknown | + + + | Ethnic Group | Unknown | + + + Author + + + | Author | [facility] | | | and [place] | + + + | Organization | [facility] | | [...] Team Providers + +------+ + | Care Saas Architect Name | Role | Phone | + [...] + + | 10/18/ | Office | [facility] | Kyree Ovalles | Facet syndrome, | | 2014 | Visit | REHABILITATION | [address] | lumbar (Primary Dx); | | | | MEDICINE [address] | [facility] [place] | Myofascial pain; | | | | [address] | [place] [address] | Unequal leg length | | | | [place] [address] | [phone] | (acquired) | | | | [phone] | | | +--------+---------+ + + + [...] 10/19/2015 3:22 PM PST15 minutes was spent, [id number], o romulo half in counseling and education [...]
[2020-04-15] MEDS ORDERED: NORCO 5-325 TA1 EACH PO (20:28)
[2020-04-15] MEDS ORDERED: CRUTCH1 EACH (20:28)
== END 2020-04-15 20:47 | disposition home or self-care (01) ==
LOC: ED 16:57
DX: S90.31XA Contusion of right foot, initial encounter (principal); M23.91 Unspecified internal derangement of right knee; Z91.040 Latex allergy status; W01.0XXA Fall on same level from slipping, tripping and stumbling without subsequent striking against object, initial encounter
CPT/HCPCS: 73560; 73630; 99283-25